=== PATIENT | male | born 1985 | race Caucasian/White ===

== ENCOUNTER 2021-10-05 09:44 | Emergency (ER) | payer OTHER ==
[~2021-10-05] VITALS: Ht 177.8 cm; Wt 71.0 kg
[2021-10-05] MEDS ORDERED: LEVETIRACETAM 1000MG PREMIX 100 ML IV ONE (10:00)
[2021-10-05 10:20] VITALS: BP 147/101
[2021-10-05 10:48] LABS: HEMATOCRIT. 38.8 % (42.0-52.0); HEMOGLOBIN. 12.8 g/dL (14.0-18.0); MEAN CORPUSCULAR VOLUME 88.3 fL (80.0-94.0); MEAN PLATELET VOLUME 9.1 fl (7.4-10.4); PLATELET 109 x1000/uL (130-400); RED CELL DISTRIBUTION WIDTH 17.3 % (11.6-14.6)
[2021-10-05 10:54] LABS: CHLORIDE 100 mEq/L (98-107)
[2021-10-05 11:02] LABS: ETHANOL BLOOD 58 mg/dL
[2021-10-05] MEDS ORDERED: MIDAZOLAM HCL 2 MG/2 ML VIAL IV NR (12:00)
[2021-10-05] MEDS ORDERED: DIAZEPAM 5 MG TABLET PO NR (12:00)
[2021-10-05] MEDS ORDERED: VISCOUS LIDOCAINE 2% 15 ML UDC PO NR (13:16)
[2021-10-05 13:25] LABS: PLATELET ESTIMATE DECREASED
[2021-10-05] MEDS ORDERED: MAGNESIUM/ALUMINUM HYDROXIDE/SIMETHICONE 30ML UDC PO NR (13:30)
[2021-10-05] MEDS ORDERED: SODIUM CHLORIDE 0.9% 1,000 ML IV ONE ×2 (13:30→13:45)
[2021-10-05] MEDS ORDERED: FAMOTIDINE 20MG/2ML VIAL IV NR (13:30)
[2021-10-05] MEDS ORDERED: CEFTRIAXONE 1 G PREMIX 50 ML IV NR (13:45)
== END 2021-10-05 15:12 | disposition left against medical advice (07) ==
LOC: ER 09:49 → CANBEDREQ 21:20
DX: F10.239 Alcohol dependence with withdrawal, unspecified (principal); Y90.2 Blood alcohol level of 40-59 mg/100 ml; R74.01 Elevation of levels of liver transaminase levels; K29.20 Alcoholic gastritis without bleeding; F10.20 Alcohol dependence, uncomplicated
CPT/HCPCS: 36415; 70450; 80053; 80320; 82962; 85025; 96365; 96366; 96375; 99291; J1953; J2250; G0480